=== PATIENT | female | born 1985 | race Caucasian/White ===

== ENCOUNTER 2021-03-10 09:16 | Emergency (ER) | payer BC ==
[~2021-03-10] VITALS: Ht 157.5 cm; Wt 89.8 kg
[2021-03-10] MEDS ORDERED: IBUPROFEN 600 MG TABLET ONE (09:30)
[2021-03-10] MEDS ORDERED: IBUPROFEN 600 MG TABLET PO ONE (09:30)
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
[2021-03-10 11:16] VITALS: BP 117/76
--- NOTE | 2021-03-10 11:16 | NUR ---
Patient discharged to home in stable condition. Written and verbal after care instructions given. Patient verbalizes understanding of instruction.
== END 2021-03-10 11:17 | disposition home or self-care (01) ==
LOC: ER 09:54
DX: S60.222A Contusion of left hand, initial encounter (principal); R07.89 Other chest pain; V49.49XA Driver injured in collision with other motor vehicles in traffic accident, initial encounter; Y93.89 Activity, other specified; Y92.413 State road as the place of occurrence of the external cause; Y99.8 Other external cause status
CPT/HCPCS: 71045-TC; 73130-TC